=== PATIENT | female | born 1960 | race Two or more races ===

== ENCOUNTER → 2025-03-03 | Outpatient (CLI) | payer MEDICAID, SELFPAY ==
--- NOTE | 2025-03-03 14:14 | XR_ITS ---
Examination: CT brain head without contrast. 2-D sagittal coronal reconstructions Date and time of exam:March 03, 2025 1541 hours Comparison June 16, 2015 INDICATIONS: Headaches after falling 2 weeks ago with injury head CTDI: vol (mGy):44.5 DLP: (mGycm):861 Technique: Multiple CT axial sections of the brain have been obtained, 5 mm slice thickness. Contrast has not been administered. 2-D sagittal, coronal reconstructions have been obtained Low dose protocols were performed. One or more of the following dose reduction techniques were used; automated exposure control, adjustment of the mA and/or KV according to patient size, use of iterative reconstruction technique. Findings: No significant ventricular enlargement. Intra-axial or extra-axial hemorrhage density is not seen. No mass effect or midline shift Basal cisterns are not remarkable. Fourth ventricle is midline. Cranial vault intact. Impression: Negative for acute hemorrhage, mass effect or midline shift
--- NOTE | 2025-03-03 14:17 | XR_ITS ---
Examination: Shoulder,right, 3 views Technique: Shoulder AP internal rotation, AP external rotation, Y view shoulder, 3 views Exam date and time :March 03, 2025 1421 hours INDICATIONS: Patient fell 2 weeks ago with injury to the shoulder, shoulder pain. FINDINGS: No shoulder fracture or dislocation No AC joint separation Mild calcific tendinitis IMPRESSION: No fracture or dislocation
--- NOTE | 2025-03-03 14:17 | XR_ITS ---
Examination: Forearm, right, 2 views. Technique: Forearm, AP, lateral 2 views Date and time of exam: March 03, 2025 1421 hours INDICATIONS: Patient fell 2 weeks ago with injury to the forearm, forearm pain. FINDINGS: No acute fracture No dislocation No foreign body IMPRESSION: No acute fracture
--- NOTE | 2025-03-03 16:15 | XR_ITS ---
Examination: CT soft tissue neck, without intravenous contrast. 2-D coronal reconstructions. 2-D sagittal reconstructions. Date and time of exam :March 03, 2025 1725 hours INDICATIONS: Patient fell 2 weeks ago with injury to the neck, neck pain. CTDI: vol (mGy):11.7 DLP: (mGycm):314 Technique: 1.25 mm axial sections of the neck of the obtained. Coronal and sagittal reconstructions have been obtained. Low dose protocols were performed. One or more of the following dose reduction techniques were used; automated exposure control, adjustment of the mA and/or KV according to patient size, use of iterative reconstruction technique. Findings: Adequate alignment cervical vertebral bodies No cervical fracture Mild cervical spondylosis Intact odontoid The optic globes are partially visualized and appear intact No nasopharyngeal or oropharyngeal mass No pathologic lymphadenopathy No soft tissue hematoma IMPRESSION: No cervical fracture No soft tissue neck hematoma
== END | disposition home or self-care (01) ==
LOC: CDIM 13:50
PROVIDERS: PCP Nurse Practitioner Family; Referring Provider Nurse Practitioner Family; Visit Provider Nurse Practitioner Family
DX: R51.9 Headache, unspecified (principal); H93.19 Tinnitus, unspecified ear; M54.2 Cervicalgia; M25.511 Pain in right shoulder; M79.631 Pain in right forearm; W19.XXXA Unspecified fall, initial encounter
CPT/HCPCS: 70450; 70490; 73030; 73090

== ENCOUNTER → 2025-05-21 | Outpatient (CLI) | payer MEDICAID, SELFPAY ==
--- NOTE | 2025-05-21 10:13 | XR_ITS ---
Examination: Lumbar spine, 5 views Technique: Lumbar spine AP, lateral, coned lateral lower lumbar spine, bilateral obliques 5 views Exam date and time: May 21, 2025 1014 hours INDICATIONS: Patient fell off a ladder 40 years ago with injury to the back, persistent back pain worse the last 5 months FINDINGS: Severe osteopenia Lumbar dextroscoliosis 18 degrees Moderate diffuse facet arthropathy No acute fracture Moderate to advanced lumbar degenerative disc disease lower 4 lumbar levels IMPRESSION: No lumbar fracture Moderate to advanced degenerative disc disease lower 4 lumbar levels
--- NOTE | 2025-05-21 10:13 | XR_ITS ---
Examination:Right hip AP, lateral, AP pelvis 3 views Technique: Hip AP lateral, AP pelvis, 3 views Exam date and time:May 21, 2025 1014 hours INDICATIONS: Patient fell off a ladder 5 years ago with injury to the right hip, worsening right hip pain. FINDINGS: No right hip fracture or dislocation Left hip bones of the pelvis intact Mild bilateral hip osteoarthritis IMPRESSION: Mild bilateral hip osteoarthritis.
== END | disposition home or self-care (01) ==
PROVIDERS: PCP Nurse Practitioner Family; Referring Provider Nurse Practitioner Family; Visit Provider Nurse Practitioner Family
DX: M16.0 Bilateral primary osteoarthritis of hip (principal); M51.360 Other intervertebral disc degeneration, lumbar region with discogenic back pain only; S39.92XS Unspecified injury of lower back, sequela; S79.911S Unspecified injury of right hip, sequela; W11.XXXS Fall on and from ladder, sequela
CPT/HCPCS: 72110; 73502

== ENCOUNTER → 2025-07-13 | Outpatient (CLI) | payer MEDICAID, SELFPAY ==
--- NOTE | 2025-07-13 13:50 | XR_ITS ---
Examination: Bone densitometry Date and time of exam:July 13, 2025 1346 hours INDICATIONS: Menopause age 55 diabetic levothyroxine 10 years Technique: Lumbar spine and hip total bone mineralization values of an calculated. Peak reference and age match control results have been displayed. Findings: Lumbar spine total bone mineralization is0.931 gm/cm2. This is 1.1 standard deviations below peak reference. This is 0.7 standard deviations above age-matched controls. Hip total bone mineralization is 0.875 gm/cm2 This is 0.7 standard deviations below peak reference. This is 0.4 standard deviations above age-matched controls Impression: There is osteopenia based on lumbar spine measurements. There is osteopenia based on hip measurements Lumbar mineralization is decreased 2.8% compared with February 19, 2023 Hip mineralization is decreased 3.3% compared with February 19, 2023
== END | disposition home or self-care (01) ==
PROVIDERS: PCP Nurse Practitioner Family; Referring Provider Nurse Practitioner Family; Visit Provider Nurse Practitioner Family
DX: Z13.820 Encounter for screening for osteoporosis (principal); M85.89 Other specified disorders of bone density and structure, multiple sites
CPT/HCPCS: 77080

== ENCOUNTER → 2025-10-29 | Outpatient (CLI) | payer MEDICARE, MEDICAID, SELFPAY ==
--- NOTE | 2025-10-29 11:15 | XR_ITS ---
Examination: MRI thoracic spine without contrast. Date and time of exam: October 29, 2025, 1111 hours INDICATIONS: Low back pain radiating to the shoulders 2 months Technique: Multiple sagittal and axial images of the thoracic spine have been obtained. T1 weighted localizer, sagittal T2 weighted images, TR 30-50, TE 148, T1 weighted sagittal images, TR 650, TE 14, T2-weighted transverse images, TR 6770, TE 142 Findings: Partial straightening of the normal thoracic kyphosis No thoracic fracture Mild diffuse thoracic disc narrowing and disc desiccation No localized enlargement thoracic cord Axial images demonstrate no focal disc protrusion impinging upon the thoracic cord No syrinx cavity Impression: Mild diffuse thoracic degenerative disc disease No significant acquired spinal stenosis
--- NOTE | 2025-10-29 11:45 | XR_ITS ---
Examination: MRI lumbar spine without contrast Date and time of exam: 10/29/2025 at 11:38 a.m. INDICATION: Lower back pain, scoliosis probable intervertebral disc degeneration. Low back pain radiating down the right leg and numbness in both lower legs Technique: Multiple MRI axial and sagittal sections lumbar spine. Sagittal T2-weighted images, TR 3500, TE 118 T1 weighted transverse sections, TR 688 T8.5, T2-weighted sagittal sections T1 weighted sagittal sections TR 621, TE 30 T2 axial sections, TR 4, 190, TE 84. Findings: There is mild scoliosis, convexity to the right in the lower half the lumbar spine. The conus medullaris terminates at L1 which is normal At L1-L2 the disc appears essentially normal, there is no bulging of the disc and the spinal canal and right left neuroforamina appear normal At L2-L3 there is minimal reverse spondylolisthesis noted. The disc space narrowing is most prominent on the left, there is a very prominent disc protrusion noted laterally on the left side. This broad-based very prominent disc protrusion creates significant encroachment on the left neural foramen. However there is still an adequate amount of foraminal fat surrounding the left L2 nerve root. The right neuroforamen at this level appears entirely normal. At L3-4 there is mildly prominent diffuse annular disc bulging posterolaterally on the left side, this does intrude on the left neuroforamen, there is also prominent DJD in the posterior facet joint also encroaching on the left neural foramen. However there is still an adequate amount of foraminal fat surrounding the nerve root which does not appear compressed. At L4-L5 there is a diffuse mildly prominent annular disc bulge noted. This does not create any significant abnormal indentation on the thecal sac, it does intrude prominently on the right neuroforamen but there is still adequate foraminal fat surrounding the exiting right L4 nerve root. On the left no disc abnormalities are noted in the left neuroforamen appears essentially normal L5-S1 there is minimal diffuse bulging of the annulus, no significant abnormalities are seen involving the spinal canal left neuroforamina. IMPRESSION: 1. Please see above discussion regarding findings at each level. the findings at L2-L3 are most prominent
== END | disposition home or self-care (01) ==
PROVIDERS: PCP Nurse Practitioner Family; Referring Provider Nurse Practitioner Family; Visit Provider Nurse Practitioner Family
DX: M51.34 Other intervertebral disc degeneration, thoracic region (principal); M43.16 Spondylolisthesis, lumbar region; M47.816 Spondylosis without myelopathy or radiculopathy, lumbar region; M51.360 Other intervertebral disc degeneration, lumbar region with discogenic back pain only
CPT/HCPCS: 72146; 72148